=== PATIENT | female | born 1960 | race African-American/Black ===

== ENCOUNTER 2017-04-16 11:16 | Emergency (ER) | payer MEDICAID, OTHER ==
[~2017-04-16] VITALS: Ht 162.6 cm; Wt 63.5 kg
[2017-04-16] MEDS ORDERED: NAPROXEN 250 MG TABLET PO ONE (13:30)
[2017-04-16 13:35] VITALS: BP 137/88
== END 2017-04-16 14:22 | disposition home or self-care (01) ==
LOC: EMS 11:17
DX: S99.922A Unspecified injury of left foot, initial encounter (principal); Y33.XXXA Other specified events, undetermined intent, initial encounter; Y93.89 Activity, other specified; Y92.89 Other specified places as the place of occurrence of the external cause; Y99.8 Other external cause status
CPT/HCPCS: 99282

== ENCOUNTER 2017-08-03 09:41 | Emergency (ER) | payer OTHER ==
[~2017-08-03] VITALS: Ht 154.9 cm; Wt 68.2 kg
[2017-08-03] MEDS ORDERED: DiphenhydrAMINE HCL 25 MG CAPSULE PO ONE (11:15)
[2017-08-03 11:35] VITALS: BP 138/70
== END 2017-08-03 11:45 | disposition home or self-care (01) ==
LOC: EMS 09:42
DX: L23.9 Allergic contact dermatitis, unspecified cause (principal)
CPT/HCPCS: 99282

== ENCOUNTER 2018-03-09 00:36 | Emergency (ER) | payer OTHER ==
[~2018-03-09] VITALS: Ht 157.5 cm; Wt 68.2 kg
[2018-03-09] MEDS ORDERED: HYDROCODONE/ACETAMINOPHEN 5-325 MG TABLET PO ONE (02:15)
[2018-03-09 02:45] VITALS: BP 120/77
== END 2018-03-09 03:02 | disposition home or self-care (01) ==
LOC: EMS 00:36
DX: S92.511A Displaced fracture of proximal phalanx of right lesser toe(s), initial encounter for closed fracture (principal); X58.XXXA Exposure to other specified factors, initial encounter; Y93.89 Activity, other specified; Y92.89 Other specified places as the place of occurrence of the external cause; Y99.8 Other external cause status

== ENCOUNTER 2018-12-24 18:46 | Emergency (ER) | payer OTHER ==
[~2018-12-24] VITALS: Ht 154.9 cm; Wt 68.2 kg
[2018-12-24] MEDS ORDERED: KETOROLAC TROMETHAMINE 60 MG/2 ML VIAL IM ONE (19:45)
[2018-12-24 21:50] VITALS: BP 144/77
== END 2018-12-24 21:55 | disposition home or self-care (01) ==
LOC: EMS 18:48
DX: S20.212A Contusion of left front wall of thorax, initial encounter (principal); S09.90XA Unspecified injury of head, initial encounter; W01.0XXA Fall on same level from slipping, tripping and stumbling without subsequent striking against object, initial encounter; Y93.01 Activity, walking, marching and hiking; Y92.89 Other specified places as the place of occurrence of the external cause; Y99.8 Other external cause status
CPT/HCPCS: 71100; 96372; 99283; G0238; J1885